=== PATIENT | female | born 1950 | race Caucasian/White ===

== ENCOUNTER 2016-05-31 15:42 | Observation (INO) | payer MEDICARE, BC ==
[~2016-05-31] VITALS: Ht 165.1 cm; Wt 61.9 kg
--- NOTE | 2016-05-31 22:22 | CO ---
ADMIT: 05/31/2016 RM/LOC: [address] [facility] MR#: [id number] [address] [address] [place] M [address] [place] [address] Consultation SEX: F AGE: 66 : 1950 DATE OF CONSULTATION: 05/31/2016 ATTENDING PHYSICIAN: Oziel Valladares CONSULTING PHYSICIAN: Oziel Valladares MD CHIEF COMPLAINT: Wrist pain. HISTORY OF PRESENT ILLNESS: The patient is a 66-year-old female. 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 She has a grossly- deformed right wrist. She has significant numbness in the radial 3-1/2 digits with a grossly deformed wrist. She has a large contusion, hematoma just below her left orbital area. We were consulted regarding her right hand. PAST MEDICAL HISTORY: Past medical problems include recent C. difficile infection, on vancomycin; hypertension; hyperlipidemia. PAST SURGICAL HISTORY: Include shoulder arthroscopy, hysterectomy, and foot fusion. MEDICATIONS: Include: 1. Lipitor. 2. Vancomycin. ALLERGIES: TO SULFA. SOCIAL HISTORY: Normally lives at home. REVIEW OF SYSTEMS: Negative. PHYSICAL EXAMINATION: GENERAL: A 66-year-old female. She has a significant abrasion to the dorsal aspect of the right wrist, just on the ulnar side of the wrist. It is not an open fracture, just an abrasion. She has a volar- displaced Ramsey type fracture with the carpus dislocated in the palmar direction. Her skin is almost tenting dorsally. She has significant numbness in the radial 3-1/2 digits. Ulnar nerve is intact. No pain in the elbow or shoulder. Again, she has a large contusion in the left orbital area, which is being worked up by the ER. IMPRESSION: 1. Right comminuted intra-articular volar displaced Ramsey's fracture. 2. Right acute carpal tunnel syndrome with median nerve symptoms. ADMIT: 05/31/2016 RM/LOC: [address] [facility] MR#: [id number] [address] [address] [place] [address] [place] [address] Consultation SEX: F AGE: 66 : 1950 3. Right wrist contusion. PLAN: At this point, due to significant displaced fracture and comminution, I think it could be very difficult to hold in this in a splint with the median nerve symptoms. She has not eaten or drinking since noon. We are going to proceed tonight with a right wrist open reduction and internal fixation depending on we will possibly proceed with a carpal tunnel release also. There is a chance that due to this comminution, may have to place an external fixator with the plate. She is aware of the risks, benefits, and options and agreed to proceed, and plan on proceeding tonight. EDIT: 05/31/20161699 2037 nabila Valladares MD/ brijesh JOB #: [id number] CC: Oziel Valladares, Attending Physician Oziel Valladares, Family Physician
[2016-06-02] MEDS ORDERED: ASA CHILDREN'S81 MG PO (13:56)
[2016-06-02] MEDS ORDERED: LIPITOR DPS10 MG PO (13:56)
[2016-06-02] MEDS ORDERED: CALCIUM600 MG PO (13:57)
[2016-06-02] MEDS ORDERED: VANCOCIN125 MG PO (13:57)
[2016-06-02] MEDS ORDERED: VITAMIN D31000 UNI1 PO (13:58)
[2016-06-02] MEDS ORDERED: TYLENOL DPS325 MG PO (13:58)
[2016-06-02] MEDS ORDERED: CULTURELLE1 CAP PO (13:58)
[2016-06-02] MEDS ORDERED: NORCO 5-325 TA1 EACH PO (13:58)
[2016-06-02] MEDS ORDERED: GLUCOSAMINE/CHO1 TAB PO (13:58)
--- NOTE | 2016-06-03 12:11 | ER ---
ADMIT: 05/31/2016 RM/LOC: [address] [facility] MR#: [id number] [address] [address] [address] [place] [address] [place] [address] Emergency Room Report SEX: F AGE: 66 : 1950 DATE: 05/31/2016 HISTORY OF PRESENT ILLNESS: Ms. Weiss is a 66-year-old, who presented to the emergency room with right wrist pain. She was selling [employer] with her granddaughter. Her paper that had the documentation for the cookies blew away with the wind and she tried to grab it and tried to go after, fell on her face. She has a large hematoma in her left cheek and a completely deformed right wrist. PAST MEDICAL HISTORY: She does have C. diff, she has been treated with antibiotics. ALLERGIES: SULFA. SOCIAL HISTORY: Denies smoking, drugs, or alcohol. PHYSICAL EXAMINATION: GENERAL: Mildly anxious. Well-nourished and well- developed female, very pleasant. VITAL SIGNS: Blood pressure 107/64, heart rate is 95, respirations 16, temp is 96.9 and O2 sats 96%. NECK: Supple. HEAD: See the diagram in my T-sheet. She does have a large hematoma about 2 cm x 4 in her left cheek. She does not seem to be having any entrapment. ENT: Intra-ocular muscles are intact. The eyelids are patent and not swollen. ENT otherwise is normal. RESPIRATIONS: Chest nontender. No ecchymosis. Breath sounds are normal. ABDOMEN: Nontender. NEUROLOGIC: Oriented x4. SKIN: Abrasion of right wrist, medial aspect of the wrist at the ulnar area. BACK: No CVA, normal inspection. EXTREMITIES: See T-sheet for the deformity in the right wrist. I did use two syringes of bupivacaine 0.5% at 5 mL each for a joint block at the right wrist. I was able to put a short arm splint. She is going to Surgery. The CT of facial bones is totally negative, read by Dr. Arellano. Dr. Valladares was here when the patient arrived and she will be having surgery today. CLINICAL IMPRESSION: Wrist fracture, right and hematoma, left face secondary to a fall. The patient will be getting admitted. CHRISTOPHER Hannah / Jhonatan Shepherd MD / brijesh JOB #: [id number] CC: Oziel Valladares MD, Attending Physician Oziel Valladares MD, Family Physician
--- NOTE | 2016-06-18 10:38 | OR ---
ADMIT: 05/31/2016 RM/LOC: [address] [facility] MR#: [id number] [address] [address] [address] [place] [address] Operative/Delivery Room Report SEX: F AGE: 66 : 1950 SURGERY DATE: 05/31/2016 SURGEON: Oziel Valladares MD PREOPERATIVE DIAGNOSIS: Right displaced comminuted intra-articular volar Ramsey's fracture of the distal radius. POSTOPERATIVE DIAGNOSIS: Right displaced comminuted intra-articular volar Ramsey's fracture of the distal radius. PROCEDURE: Right wrist open reduction and internal fixation. SUPERINTENDENT PIER: CHRISTOPHER Ricardo. COMPLICATIONS: None. BLOOD LOSS: 20 mL. DESCRIPTION OF PROCEDURE: The patient was taken to the operating room, received a general anesthetic. The right arm was prepped and draped in standard fashion. Closed reduction was performed. She had a very comminuted volar fracture. The volar-type incision was made. Dissection was carried through subcutaneous tissue. The FCR tendon sheath was identified. We opened the FCR sheath. We then retracted the FCR tendon and opened up the floor of the sheath. At that point, the pronator quadratus had already been disrupted. She had a very comminuted fracture volarly with multiple intra-articular fragments. We teed the fragments back into an anatomic position. We then tried to reduce the radial styloid. We percutaneously pinned this to hold it in appropriate length. At that point, we placed a short hand innovations volar plate in place, placed 1 screw in the sliding hole to allow proper positioning. At that point, we confirmed good position of the plate. We then used the plate to help reduce our volar multiple articular fragments. At that point, we placed multiple threaded pins through all the holes of the volar ADMIT: 05/31/2016 RM/LOC: [address] [facility] MR#: [id number] [id number] [facility] [address] [place] [id number] [address] [place] [address] Operative/Delivery Room Report SEX: F AGE: 66 : 1950 plate. We had to use a variable angle screw in the radial styloid to hold the radial styloid in place. At that point, we removed all of our K-wires. We placed 2 more proximal screws through the plate. At that point, AP, lateral, oblique images confirmed good placement of the plate and all screws. Due to the very volar and comminuted fracture and distal fragments, we placed the plate fairly distal, all screws right at the subchondral margin, confirmed on a perfect lateral x-ray. At that point, we irrigated out the wounds thoroughly, repaired a portion of pronator quadratus with 2-0 Vicryl, closed the subcutaneous with 2-0 Vicryl, placed nylon in the skin. She was placed in a short arm volar splint in slight extension. She was taken to the recovery in stable condition. No complications. The tourniquet was deflated at the end of the case. She had to be carefully held at the hand. Oziel Valladares MD/ brijesh JOB #: [id number] CC: Oziel Valladares, Attending Physician Oziel Valladares, Family Physician
== END 2016-06-01 14:10 | disposition home or self-care (01) ==
LOC: ER 15:42 → SSS 16:30 → 5MS 20:27
PROVIDERS: ADMIT Orthopaedic Surgery
PROC: 0PSH04Z Reposition Right Radius with Internal Fixation Device, Open Approach (ICD-10-PCS; principal; 2016-05-31)
DX: S52.561A Barton's fracture of right radius, initial encounter for closed fracture (principal); I10 Essential (primary) hypertension; E78.5 Hyperlipidemia, unspecified; G56.01 Carpal tunnel syndrome, right upper limb; Z90.710 Acquired absence of both cervix and uterus; Z79.899 Other long term (current) drug therapy; Z88.2 Allergy status to sulfonamides; W01.0XXA Fall on same level from slipping, tripping and stumbling without subsequent striking against object, initial encounter

== ENCOUNTER → 2016-09-13 | Outpatient (CLI) | payer MEDICARE, BC ==
[~2016-09-13] MED LIST: ASA CHILDREN'S81 MG PO; CALCIUM600 MG PO; CULTURELLE1 CAP PO; GLUCOSAMINE/CHO1 TAB PO; LIPITOR DPS10 MG PO; NORCO 5-325 TA1 EACH PO; TYLENOL DPS325 MG PO; VANCOCIN125 MG PO; VITAMIN D31000 UNI1 PO
== END | disposition home or self-care (01) ==
LOC: RAD.S 08:10
DX: R10.13 Epigastric pain (principal)